=== PATIENT | female | born 1970 | race Caucasian/White ===

== ENCOUNTER → 2016-04-27 | Day surgery (SDC) | payer BC ==
[2016-04-13 10:03] VITALS: Ht 162.6 cm; Wt 72.7 kg
[~2016-04-27] VITALS: Ht 162.6 cm; Wt 72.7 kg
[~2016-04-27] MED LIST: ATROPINE SULFATE 0.1 MG/ML 5ML SYR IV PRN; BUPIVACAINE 0.5 % 5 MG/1 ML MPF 30ML VIAL ONE; CEFAZOLIN 1000MG/55 ML D5W IV SCH; DEXAMETHASONE SOD INJ 4 MG/ML VIAL ONE; EpHEDrine SULFATE INJ 50 MG/ML AMP IV PRN; EpINEphrine INJ 1MG/ML AMP 1 MG/ML AMP ONE; FENTANYL CITRATE INJ 50 MCG/1 ML 2 ML VIAL IV PRN; FENTANYL CITRATE INJ 50 MCG/1 ML 2 ML VIAL ONE; HYDR-5688 PO; KETOROLAC TROMETHAMINE 30 MG/ML VIAL ONE; LACTATED RINGER'S 1000ML 1,000 ML IV SCH; LEVO25TA5 PO; LIDOCAINE HCL 2% 2 ML VIAL (20MG/ML) ONE; MIDAZOLAM HCL 1 MG/ML 2ML VIAL ONE; ONDANSETRON INJ 2 MG/ML 2 ML VIAL IV PRN; ONDANSETRON INJ 2 MG/ML 2 ML VIAL ONE; OXYCODONE/ACETAMINOPHEN 5-325 TAB PO PRN; PROPOFOL IV EMULSION 10 MG/ML 20 ML VIAL IV ONE; ROPIVACAINE 0.5% 5 MG/ML 30 ML VIAL ONE; SODIUM CHLORIDE 0.9% 1000ML 1,000 ML IV SCH; VITAMIN D PO
--- NOTE | 2016-04-27 07:57 | History & Physical Bridge - [place] ---
H&P Re-Evaluation Bridge Note: I have examined the patient, reviewed the History & Physical and in the interval since the performance of the History & Physical I have noted the following changes of clinical significance: No changes noted
--- NOTE | 2016-04-27 08:20 | [facility] Post Operative Brief Note ---
Immediate Operative Summary Operative Date Apr 27, 2016. Pre-Operative Diagnosis Right Knee Plica, Cyst, Loose Body Post-Operative Diagnosis same Procedure(s) Performed Right Knee Arthroscopy, Plica Band Excision, Loose Bodies Excision, CHONDROPLASTY TROCHLEAR GROOVE Surgeon Dr. Holley Hung Product Designer Surgeon(s) Qasim Jarvis PA-C Estimated Blood Loss 0 Specimens none Anesthesia LMA Complication(s) None Disposition Recovery Room / PACU
--- NOTE | 2016-04-27 08:32 | Discharge Instructions-SurgCtr ---
Discharge Instructions Visit Reason for Visit: Right Knee Plica, Cyst, Loose Body Discharge Discharge Diagnosis / Problem: SAME ABOVE Discharge Goals Goal(s): Decrease discomfort, Improve function Activity Recommendations Activity Limitations: as noted below Lifting Limitations: until after follow-up appointment Exercise/Sports Limitations: until after follow-up appointment Shower/Bathe: may shower/bathe in 3 days Weightbearing Status: Right weightbearing (as tolerated) Anesthesia . Post Anesthesia Instructions: If you have had General Anesthesia or IV Sedation: * Do not drive today. * Resume driving when surgeon permits. * Do not make important decisions or sign legal documents today. * Call surgeon for: 1. Temperature elevations greater than 101 degrees F. 2. Uncontrollable pain. 3. Excessive bleeding. 4. Persistent nausea and vomiting. 5. Medication intolerance (nausea, vomiting or rash). * For nausea and vomiting use only clear liquids such as: tea, soda, bouillon until nausea subsides, then gradually increase diet as tolerated. * If you have any concerns or questions, call your surgeon's office. If physician is unavailable and it is an emergency, call 911 or go to the nearest emergency room. . Instructions / Follow-Up Instructions / Follow-Up MEDICATIONS: * Resume previous medications unless instructed otherwise by your surgeon. * Always take pain medication on a full stomach or with food to avoid upset stomach. * Do not drink alcohol or drive while taking narcotics. * Ibuprofen or Tylenol may be taken if narcotic not needed. SPECIAL CARE INSTRUCTIONS: __ None _X_ Keep extremity elevated and iced x 48 hours; apply ice 20-30 minutes 8-10 times/day. May remove at night. __ Crutches __ May discard when able __ Brace/Post-op shoe __ 24 hrs/day __ Remove at night _X_ Dressing __ Maintain until seen in office, may shower with plastic over site _X_ Remove dressings in 24-48 hours and then may shower _X_ Cover incisions with band-aids after showering __ Do not remove steri-strips Call physician if chills or temperature rises above 102 degrees or pain unrelieved by prescribed pain medications. Office [phone] Diet Recommendations Home Diet: resume previous diet Procedures Procedures Performed: Right Knee Arthroscopy, Plica Band Excision, Loose Bodies Excision, CHONDROPLASTY TROCHLEAR GROOVE Pending Studies Studies pending at discharge: no Medical Emergencies . Who to Call and When: Medical Emergencies: If at any time you feel your situation is an emergency, please call 911 immediately. . Non-Emergent Contact Non-Emergency issues call your: Primary Care Provider . . "Provider Documentation" section prepared by Qasim Jarvis.
--- NOTE | 2016-04-27 09:04 | Anesthesia Progress Nt - [facility] ---
Anesthesia Post Op Note Date & Time Apr 27, 2016 at 09:04 Vital Signs Pain Intensity: 0 Vital Signs Past 12 Hours Date Time Temp Pulse Resp B/P Pulse Ox O2 Delivery O2 Flow Rate FiO2 04/27/16 08:59 36.8 55 12 103/72 99 Room Air 04/27/16 08:56 48 11 98 04/27/16 08:53 110/69 04/27/16 08:51 59 12 04/27/16 08:51 58 12 100 04/27/16 08:50 57 15 04/27/16 08:50 55 15 100 04/27/16 08:48 129/74 04/27/16 08:45 79 15 04/27/16 08:45 80 15 100 04/27/16 08:44 68 13 04/27/16 08:44 66 13 100 04/27/16 08:43 109/72 04/27/16 08:39 50 2 04/27/16 08:39 51 2 100 04/27/16 08:38 108/71 04/27/16 08:34 54 12 04/27/16 08:34 52 12 100 04/27/16 08:33 111/71 04/27/16 08:29 47 16 100 04/27/16 08:29 36.8 52 16 113/61 99 Diffusion Mask 6 04/27/16 08:29 49 16 04/27/16 07:16 36.6 68 18 127/82 99 Room Air Notes Mental Status: alert / awake / arousable, participated in evaluation Pt Amnestic to Procedure: Yes Nausea / Vomiting: adequately controlled Pain: adequately controlled Airway Patency, RR, SpO2: stable & adequate BP & HR: stable & adequate Hydration State: stable & adequate Anesthetic Complications: no major complications apparent
--- NOTE | 2016-04-27 09:04 | OPERATIVE REPORT ---
DATE OF OPERATION: 04/27/2016 PREOPERATIVE DIAGNOSIS: Loose body right knee with plica band. POSTOPERATIVE DIAGNOSES: 1. Loose body intercondylar notch of the right knee. 2. Large thick plica band with potential patellar joint. 3. 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 PROCEDURE: 1. Right knee arthroscopy. 2. removal of loose bodies. 3. Removal of plica band. 4. Chondroplasty trochlear groove of right patellofemoral joint. SURGEON: Dr. Hung. HEALTHCARE REPRESENTATIVE: Qasim Jarvis PA-C. ANESTHESIOLOGIST: Dr. Contreras. ANESTHESIA: Local with LMA. DRAINS: None. COMPLICATIONS: None. CONDITION: The patient tolerated the procedure well and returned to the recovery room in apparent satisfactory condition. INDICATIONS FOR SURGERY: Fanta is a 45-year-old female who has had chronic right knee pain consistent with what we think was a loose body and also a plica band. Went over treatment options and elected to go ahead and proceed with surgery. Procedure, expected outcomes and side effects were all explained in detail. PROCEDURE: The patient was taken to the OR at which time she was placed supine on the operating table. The right knee was examined. Ligamentous salvador it was stable. Went ahead and prepped and draped in usual sterile fashion with anteromedial and anterolateral portals. Immediately found a lot of synovitis irritation right intercondylar notch by the footprint of the ACL. We found 2 chunks of bone that was sort of locked up in the soft tissue there, right where we saw it on the MRI. We came in with a [place] and removed it without incident. The medial compartment and lateral compartment were inspected. The meniscus was fine. There were some grade II changes to the femoral condyle and the medial femoral condyle. Light chondroplasty was done here. The attention was given to the patellofemoral joint. She had a large plica band, which was removed. She had erosion on the trochlear groove, grade III, and also underneath surface of the patella, chondroplasties were done here. The knee then was copiously irrigated. All cannulas were removed. Portals were closed with 4-0 nylon sutures. 30 mL of ropivacaine, 10 mg of Toradol, 1 mL epinephrine was placed in the knee joint. Placed a sterile dressing of Xeroform, 4 x 4, ABD, Sof-Rol, and Praveen bandage and returned back to recovery room in apparent satisfactory condition. SURGICAL FINDINGS: 1. Two loose bodies at intercondylar notch. 2. Large thick plica band. 3. She had articular changes, grade III, of the trochlear groove underneath surface of the patella. I attest to the content of the Intraoperative Record and any orders documented therein. Any exceptions are noted below. ELIJAH
[2016-04-27 09:27] VITALS: TEMP 36.6
[2016-04-27 09:40] VITALS: BP 121/73; PULSE 47; O2SAT 100
== END | disposition home or self-care (01) ==
LOC: X.SURG 07:09
PROVIDERS: ATTEND Orthopaedic Surgery
DX: M23.41 Loose body in knee, right knee (principal); M67.51 Plica syndrome, right knee; M17.11 Unilateral primary osteoarthritis, right knee; E03.9 Hypothyroidism, unspecified; Z88.8 Allergy status to other drugs, medicaments and biological substances

== ENCOUNTER → 2016-05-12 | Outpatient (CLI) | payer BC ==
[~2016-05-12] MED LIST changes: -ATROPINE SULFATE 0.1 MG/ML 5ML SYR IV PRN; -BUPIVACAINE 0.5 % 5 MG/1 ML MPF 30ML VIAL ONE; -CEFAZOLIN 1000MG/55 ML D5W IV SCH; -DEXAMETHASONE SOD INJ 4 MG/ML VIAL ONE; -EpHEDrine SULFATE INJ 50 MG/ML AMP IV PRN; -EpINEphrine INJ 1MG/ML AMP 1 MG/ML AMP ONE; -FENTANYL CITRATE INJ 50 MCG/1 ML 2 ML VIAL IV PRN; -FENTANYL CITRATE INJ 50 MCG/1 ML 2 ML VIAL ONE; -KETOROLAC TROMETHAMINE 30 MG/ML VIAL ONE; -LACTATED RINGER'S 1000ML 1,000 ML IV SCH; -LIDOCAINE HCL 2% 2 ML VIAL (20MG/ML) ONE; -MIDAZOLAM HCL 1 MG/ML 2ML VIAL ONE; -ONDANSETRON INJ 2 MG/ML 2 ML VIAL IV PRN; -ONDANSETRON INJ 2 MG/ML 2 ML VIAL ONE; -OXYCODONE/ACETAMINOPHEN 5-325 TAB PO PRN; -PROPOFOL IV EMULSION 10 MG/ML 20 ML VIAL IV ONE; -ROPIVACAINE 0.5% 5 MG/ML 30 ML VIAL ONE; -SODIUM CHLORIDE 0.9% 1000ML 1,000 ML IV SCH
--- NOTE | 2016-05-12 12:26 | MAMMOGRAPHY REPORT ---
BILATERAL DIGITAL DIAGNOSTIC MAMMOGRAM TOMOSYNTHESIS WITH CAD: 05/12/2016 CLINICAL HISTORY: 6 Month Follow-up. TECHNIQUE: Breast tomosynthesis in addition to standard 2D mammography was performed. Current study was also evaluated with a Computer Aided Detection (CAD) system. Bilateral CC and MLO 2-D and armando synthesis views and spot magnification right cc and ML views were obtained. COMPARISON: Comparison is made to exams dated: 11/17/2015 mammogram, 05/19/2015 mammogram, 05/09/2015 mammogram, 04/27/2013 mammogram, 05/10/2014 mammogram, and 04/21/2012 mammogram - [facility]. BREAST COMPOSITION: The tissue of both breasts is heterogeneously dense, which may obscure small ma sses. FINDINGS: Spot magnification views of the right breast again demonstrate a small 2 mm cluster of co arse benign-appearing calcifications in the right lower outer quadrant. The calcifications are stab le on spot magnification views dating back to April 2015, and in retrospect are likely present on exams prior to this including the 2009 exam. Calcifications are considered benign given the morpho logy and stability. The remainder of both breasts are stable compared to prior exams, without suspicious masses, calcifi cations, or areas of architectural distortion noted. IMPRESSION: ACR BI-RADS CATEGORY 2: BENIGN Small cluster of coarse calcifications in the right lower outer quadrant are stable compared to prio r exams, and considered benign given the morphology and stability. There is no mammographic evidenc e of malignancy. A 1 year screening mammogram is recommended. The patient has been verbally notifie d of the results. Approximately 10% of breast cancers are not detected with mammography. A negative mammographic repor t should not delay biopsy if a clinically suggestive mass is present. Samreen Shipman M.D. ah/:05/12/2016 08:21:27 Putty Mixer And Applier: Tenzin GALLARDO(R)([place]), [facility] letter sent: Normal 1/2 BI-RADS Code: ACR BI-RADS Category 2: Benign
== END | disposition home or self-care (01) ==
LOC: C.MAMM 07:47
PROVIDERS: ATTEND Obstetrics & Gynecology
DX: R92.1 Mammographic calcification found on diagnostic imaging of breast (principal)

== ENCOUNTER → 2016-07-01 | Outpatient (CLI) | payer BC ==
--- NOTE | 2016-07-01 10:56 | DIAGNOSTIC IMAGING REPORT ---
MRI left knee LEFT LOWER EXT JOINT WITHOUT CLINICAL HISTORY: L KNEE PAIN pain TECHNIQUE: Multiaxial MRI acquisition COMPARISON STUDY: None FINDINGS: Signal characteristics of the osseous structures appear unremarkable. There is no evidence for bone marrow replacing process. 3. Small joint effusion. 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 Focal loss of medial articular services measuring no more than 3 mm in terms of maximum dimension. Patellar retinaculum is intact. No popliteal cyst. The collateral ligaments structures appear to be intact. The medial and lateral menisci appear unremarkable in overall configuration and signal character. Cruciate ligaments are intact. IMPRESSION: 1. Small joint effusion. 2. 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 4. Remainder the study is unremarkable. Electronically signed by: Alok Hoff M.D. 07/01/2016 10:54 AM Dictated Date/Time: 07/01/2016 10:43 AM
== END | disposition home or self-care (01) ==
LOC: C.MRIBC 09:53
PROVIDERS: ATTEND Orthopaedic Surgery
DX: M25.562 Pain in left knee (principal)

== ENCOUNTER → 2017-05-17 | Outpatient (CLI) | payer OTHER, BC ==
[~2017-05-17] MED LIST changes: -HYDR-5688 PO
--- NOTE | 2017-05-17 15:24 | MAMMOGRAPHY REPORT ---
BILATERAL DIGITAL SCREENING MAMMOGRAM TOMOSYNTHESIS WITH CAD: 05/17/2017 CLINICAL HISTORY: Routine screening. Patient has no complaints. TECHNIQUE: Breast tomosynthesis in addition to standard 2D mammography was performed. Current study was also evaluated with a Computer Aided Detection (CAD) system. COMPARISON: Comparison is made to exams dated: 05/12/2016 mammogram, 11/17/2015 mammogram, 05/19/2015 m ammogram, 05/09/2015 mammogram, 05/10/2014 ultrasound, and 05/10/2014 mammogram - [facility]. BREAST COMPOSITION: The tissue of both breasts is heterogeneously dense, which may obscure small mas ses. FINDINGS: The parenchymal pattern is similar to prior mammograms. There are scattered stable microc alcifications including a stable small grouping of punctate macro calcifications in the inferior post erior right breast on the MLO view. No developing mass, architectural distortion or cluster of suspi cious microcalcifications is seen in either breast. IMPRESSION: ACR BI-RADS CATEGORY 2: BENIGN There is no mammographic evidence of malignancy. A 1 year screening mammogram is recommended. The pa tient will receive written notification of the results. Approximately 10% of breast cancers are not detected with mammography. A negative mammographic report should not delay biopsy if a clinically suggestive mass is present. Shanna Martínez M.D. ay/:05/17/2017 09:03:51 Trust Clerk: Alesha ORTIZ)([place]), [facility] letter sent: Normal 1/2 BI-RADS Code: ACR BI-RADS Category 2: Benign
== END | disposition home or self-care (01) ==
LOC: C.MAMM 08:26
PROVIDERS: ATTEND Obstetrics & Gynecology
DX: Z12.31 Encounter for screening mammogram for malignant neoplasm of breast (principal)